=== PATIENT | female | born 1955 | race Caucasian/White ===

== ENCOUNTER 2020-06-27 09:00 | Emergency (ER) | payer MEDICARE ==
[~2020-06-27] VITALS: Ht 157.5 cm; Wt 95.2 kg
--- OUTSIDE RECORDS SUMMARY | ~2020-06-27 | XMS | Encounter Summary ---
Demographics + + + | Address | [address] | | | [place] [address] | + + + | Home Phone | | + + + | Preferred Language | Unknown | + + + | Marital Status | | + + + | Oriental Orthodox Affiliation | Unknown | + + + | Race | Unknown | + + + | Ethnic Group | Unknown | + + + Author + + + | Author | [facility] | | | and [place] | + + + | Organization | [facility] | | | and [place] | + + + | Address | Unknown | + + + | Phone | Unavailable | + + + Support + + +---------+ + | Name | Relationship | Address | Phone | + + +---------+ + | Jaspreet Maloney | ECON | Unknown | | + + +---------+ + Care Team Providers + +------+ + | Care Camera Technician Name | Role | Phone | + +------+ + | Divya Pak | PCP | | + +------+ + Encounter Details +--------+ + + + + | Date | Type | Department | Care Team | Description | +--------+ + + + + | 05/13/ | Abstract | [facility] | Provider, | | | 2019 | | [facility] [address] | [address] | | | | | [address] | [place] | | | | | [place] | [place] [address] | | | | | [id number] | | | | | | [phone] | | | +--------+ + + + + Social History + +-------+ +--------+------+ | Tobacco Use | Types | Packs/Day | Years | Date | | | | | Used | | + +-------+ +--------+------+ | Never Smoker | | | | | + +-------+ +--------+------+ + +---+---+---+ | Smokeless Tobacco: | | | | | Never Used | | | | + +---+---+---+ + + + | Sex Assigned at | Date Recorded | | | | + + + | Not on file | | + + + documented as of this encounter Plan of Treatment Not on filedocumented as of this encounter Visit Diagnoses Not on filedocumented in this encounter"
--- OUTSIDE RECORDS SUMMARY | ~2020-06-27 | XMS | Encounter Summary ---
Demographics + + + | Address | [address] | | | [place] [address] | + + + | Home Phone | | + + + | Preferred Language | Unknown | + + + | Marital Status | | + + + | Voodoo Affiliation | Unknown | + + + | Race | Unknown | + + + | Ethnic Group | Unknown | + + + Author + + + | Author | and [facility] | | | and [place] | + + + | Organization | and [facility] | | | and [place] | + + + | Address | Unknown | + + + | Phone | Unavailable | + + + Support + + +---------+ + | Name | Relationship | Address | Phone | + + +---------+ + | Jaspreet Maloney | ECON | Unknown | | + + +---------+ + Care Team Providers + +------+ + | Care Admitting Office Escort Name | Role | Phone | + +------+ + | Divya Pak | PCP | | + +------+ + Reason for Referral Diagnostic/Screening (Routine) +--------+--------+ + + + + | Status | Reason | Specialty | Diagnoses / | Referred By | Referred To | | | | | Procedures | Contact | Contact | +--------+--------+ + + + + | Closed | | Radiology | Diagnoses | Christina, | [facility] | | | | | Lumbar | Gifty | [address] | | | | | radiculopath | GRICELDA Verdin | Ra Knapp, | | | | | y | [address] | [place] | | | | | Procedures | [place] | [address] | | | | | MRI Lumbar | STREET | Phone: | | | | | Spine wo | [address] | [phone] | | | | | Contrast | [place], | Fax: | | | | | | [place] [address] | [phone] | | | | | | Phone: | | | | | | | [phone] | | | | | | | Fax: | | | | | | | [phone] | | +--------+--------+ + + + + Reason for Visit + + + | Reason | Comments | + + + | New Patient | low back pain | + + + Evaluate & Treat (Routine) +--------+--------+ + + + + | Status | Reason | Specialty | Diagnoses / | Referred By | Referred To | | | | | Procedures | Contact | Contact | +--------+--------+ + + + + | Closed | | Physical | Diagnoses | Pasha, | [facility], | | | | Medicine and | Other | MARLENY Montero | Uziel Diggs MD | | | | Rehabilitatio | intervertebr | [address] | [address] | | | | n | al disc | [address] | [place] | | | | | degeneration | [place], | [place], [place] | | | | | , lumbar | [place] | [address] Phone: | | | | | region | [address] | [phone] | | | | | Spondylosis | Phone: | Fax: | | | | | without | [phone] | [phone] | | | | | myelopathy | Fax: | | | | | | or | [phone] | | | | | | radiculopath | | | | | | | y, | | | | | | | lumbosacral | | | | | | | region | | | +--------+--------+ + + + + Encounter Details +--------+---------+ + + + | Date | Type | Department | Care Team | Description | +--------+---------+ + + + | 05/20/ | Office | [facility] [place] | Gifty Vasquez | Lumbar radiculopathy | | 2019 | Visit | PHYSIATRY [address] | [address] Verdin [address] | (Primary Dx); | | | | [address] | [address] | Fibromyalgia; | | | | [place], [place] | [address] [place], [place] | Sacroiliitis, not | | | | [address] | [address] | elsewhere classified | | | | [phone] | | ([facility]) | +--------+---------+ + + + Social History + +-------+ +--------+------+ | Tobacco Use | Types | Packs/Day | Years | Date | | | | | Used | | + +-------+ +--------+------+ | Never Smoker | | | | | + +-------+ +--------+------+ + +---+---+---+ | Smokeless Tobacco: | | | | | Never Used | | | | + +---+---+---+ + + +---------+ + | Alcohol Use | Drinks/Week | oz/Week | Comments | + + +---------+ + | Not Currently | | | | + + +---------+ + + + + | Sex Assigned at | Date Recorded | | | | + + + | Not on file | | + + + documented as of this encounter Last Filed Vital Signs + + + + + | Vital Sign | Reading | Time Taken | Comments | + + + + + | Blood Pressure | 114/66 | 05/20/2019 11:00 AM | | | | | PDT | | + + + + + | Pulse | 74 | 05/20/2019 11:00 AM | | | | | PDT | | + + + + + | Temperature | - | - | | + + + + + | Respiratory Rate | 16 | 05/20/2019 11:00 AM | | | | | PDT | | + + + + + | Oxygen Saturation | - | - | | + + + + + | Inhaled Oxygen | - | - | | | Concentration | | | | + + + + + | Weight | 98 kg (216 lb) | 05/20/2019 11:00 AM | | | | | PDT | | + + + + + | Height | 154.9 cm (5' 1") | 05/20/2019 11:00 AM | | | | | PDT | | + + + + + | Body Mass Index | 40.81 | 05/20/2019 11:00 AM | | | | | PDT | | + + + + + documented in this encounter Patient Instructions Patient Instructions Gifty Vasquez PA-C - 05/20/2019 11:00 AM PDTFormatting of thi s note might be different from the original. 1. Today we talked about her low back and leg pain. I recommend a lumbar MRI and flexion- extension x-rays. [facility] will contact you to schedule this. Let us plan to have an office visit same day to discuss the images and treatment options. Understanding Lumbar Radiculopathy Lumbar radiculopathy is irritation or inflammation of a nerve root in the low back. It caus es symptoms that spread out from the back down one or both legs. To understand this conditio n, it helps to understand the parts of the spine: Vertebrae. These are bones that stack to form the spine. The lumbar spine contains the 5 bottom vertebrae. Disks. These are soft pads of tissue between the vertebrae. They act as shock absorbers for the spine. Spinal canal. This is a tunnel formed within the stacked vertebrae. In the lumbar spine, nerves run through this canal. Nerves. These branch off and leave the spinal canal, traveling out to parts of the body. As they leave the spinal canal, nerves pass through openings between the vertebrae. The ner ve root is the part of the nerve that is closest to the spinal canal. Sciatic nerve. This is a large nerve formed from several nerve roots in the low back. Th is nerve extends down the back of the leg to the foot. With lumbar radiculopathy, nerve roots in the low back become irritated. This leads to pain and symptoms. The sciatic nerve is commonly involved, so the condition is often called scia dutch. What causes lumbar radiculopathy? Aging, injury, poor posture, extra body weight, and other issues can lead to problems in th e low back. These problems may then irritate nerve roots. They include: Damage to a disk in the lumbar spine. The damaged disk may then press on nearby nerve ro ots. Degeneration from wear and tear, and aging. This can lead to narrowing (stenosis) of the openings between the vertebrae. The narrowed openings press on nerve roots as they leave th e spinal canal. Unstable spine. This is when a vertebra slips forward. It can then press on a nerve root . Other, less common things can put pressure on nerves in the low back. These include diabete s, infection, or a tumor. Symptoms of lumbar radiculopathy These include: Pain in the low back Pain, numbness, tingling, or weakness that travels into the buttocks, hip, groin, or leg Muscle spasms Treatment for lumbar radiculopathy In most cases, your healthcare provider will first try treatments that help relieve symptom s. These may include: Prescription and uzve-fjh-[id number] pain medicines. These help relieve pain, swelling, and irritation. Limits on positions and activities that increase pain. But lying in bed or avoiding all movement is only recommended for a short period of time. Physical therapy, including exercises and stretches. This helps decrease pain and increa se movement and function. Steroid shots into the lower back. This may help relieve symptoms for a time. Weight-loss program. If you are overweight, losing extra pounds may help relieve symptom s. In some cases, you may need surgery to fix the underlying problem. This depends on the caus e, the symptoms, and how long the pain has lasted. Possible complications Over time, an irritated and inflamed nerve may become damaged. This may lead to long-lastin g (permanent) numbness or weakness in your legs and feet. If symptoms change suddenly or get worse, be sure to let your healthcare provider know. When to call your healthcare provider Call your healthcare provider right away if you have any of these: New pain or pain that gets worse New or increasing weakness, tingling, or numbness in your leg or foot Problems controlling your bladder or bowel Date Last Reviewed: 01/24/201619993682-[address] [employer] [place] [id number]. All righ ts reserved. This information is not intended as a substitute for professional medical care. Always follow your healthcare professional's instructions. Fibromyalgia Fibromyalgia is a chronic condition.It causes pain and tenderness in connective tissues. This causes muscle pain. Often, there are also many tender areas throughout the body.Symp toms may also include stiffness and feelings of numbness and tingling. Symptoms may be worse upon waking up. They may increase with poor sleep, heavy activity, cold or damp weather, an xiety, or stress. People with fibromyalgia often feel tired. They may have trouble sleeping. Other symptoms i nclude morning stiffness, headaches, and painful menstrual periods. Some people have problem s with thinking clearly and changes in memory. The cause of fibromyalgia is not known.Symptoms are similar to that of other diseases.T hese include rheumatoid arthritis, low thyroid, chronic fatigue syndrome, and Lyme disease. In some cases, these diseases may occur together. Fibromyalgia is often treated with medicines. You and your healthcare provider can discuss the medicine that may work best for you.You may have to try more than one medicine or comb ination of medicines before you find what works for you. Home care If yourhealthcare providerhas prescribed or recommended medicines, take them as dire cted. Rest as needed. Try to get enough sleep. If you have trouble sleeping, discuss this with your healthcare provider. Be active. Regular exercise can help manage symptoms. Some options include walking, swim pierre, and biking. Strengthening exercises may also be helpful. Talk to your healthcare provi amber about the best ways to be active. Follow a healthy diet. Limit caffeine and alcohol. If you smoke, ask yourhealthcare pr ovider for help to stop. Notice how your body reacts to stress. Learn to listen to your body signals. This will h elp you take action before the stress becomes severe. Learn relaxation techniques. Also consider joining a stress reduction program or class. Talk to your healthcare provider about trying complementary treatments. These include ac upuncture, hypnosis, and biofeedback. Yoga and william chi may be helpful. Ask your healthcare provider about cognitive behavioral therapy (CBT). This type of coun seling canhelp people with fibromyalgia cope better with their illness. Follow-up care Follow up with your healthcare provider or as advised by our staff. In many cases, fibromya lgia is best treated with a team approach. This may involve your primary care provider, a public transit specialist, a physical therapist, clair mental health professional. For more information:National [place] of Arthritis and Musculoskeletal and Skin Disease s (NIAMS)www.niams.nih.gov 544-715-4868 When to seek medical advice Contact your healthcare provider right away if any of these occur: Symptoms getting worse or new symptoms developing You feel hopeless, helpless, or lose interest in day-to-day life Date Last Reviewed: 01/14/201719998730-0736 [employer]. [address] [place] [address]. All righ ts reserved. This information is not intended as a substitute for professional medical care. Always follow your healthcare professional's instructions. documented in this encounter Progress Notes Gifty Vasquez PA-C - 05/20/2019 11:00 AM PDTFormatting of this note might be diffe rent from the original. Gail Vasquez PA-C [address] [place] [address], [address] [place] [address] PHONE: FAX: NEUROSURGERY HISTORY AND PHYSICAL EXAMINATION CHIEF COMPLAINT: Chief Complaint Patient presents with New Patient low back pain HISTORY OF PRESENT ILLNESS: The patient is a 64 y.o. female with the complaint of low back pain symptoms that began several years ago but it has progressively worsening in the last s everal weeks. The patient describes symptom onset following no particular incident however she appreciates that she also has fibromyalgia which causes her total body pain. The sympto ms have been worsening. She rates the pain as mild to severe and can be unpredictable. The symptoms are intermitte nt. She describes the pain as aching, crushing, sharp, shooting, stabbing and tight band. The patient describes leg symptoms that occur on left side. The leg symptoms account for g reater than or equal to 25% of her symptoms. The leg symptoms are intermittent and the symp toms travels from the buttocks to the left anterior thigh and L3 and L5 dermatome. The gage ent also describes numbness and pain in the left leg with all 5 phalanx left side numb. The patient does not report any change in bowel or bladder function recently. Her symptoms improve with rest and changing position. Her symptoms worsen with changing position, standing, sitting, walking, running, kneeling a nd twisting. She has tried Hydromorphone, Medrol Dosepack and Chiropactic. Physical therapy has helped but she continues to have significant pain. For this recent flare she has just completed a higher dose rapid prednisone taper after failing a Medrol Dosepak. Patient is also diabetic . . PAST MEDICAL HISTORY: Past Medical History: Diagnosis Date Depression Diabetes mellitus type 2, controlled, without complications (HCC) Fibromyalgia GERD (gastroesophageal reflux disease) Hypertension Hypothyroidism Left lumbosacral radiculopathy Myalgia Myositis Obesity Osteoarthritis, generalized Other intervertebral disc degeneration, lumbar region Systemic hypertension PAST SURGICAL HISTORY: Past Surgical History: Procedure Laterality Date HYSTERECTOMY CURRENT MEDICATIONS: Current Outpatient Medications Medication Sig Dispense Refill acetaminophen (TYLENOL) 500 mg tablet Take 500 mg by mouth every 6 hours as needed for Pain. atenolol (TENORMIN) 100 MG tablet Take 100 mg by mouth Daily. citalopram (CELEXA) 20 mg tablet Take 1 tablet by mouth Daily. cyclobenzaprine (FLEXERIL) 10 mg tablet Take 10 mg by mouth 4 times daily. HYDROmorphone (DILAUDID) 4 MG tablet Take 4 mg by mouth as needed for Pain. insulin glargine (LANTUS) 100 units/mL injection (vial) Inject 70 Units under the skin nightly. levothyroxine (TIROSINT) 75 mcg capsule Take 75 mcg by mouth every morning (before christelle kfast). liraglutide (VICTOZA) 18 mg/3 mL injection Inject under the skin Daily. lovastatin (MEVACOR) 40 MG tablet Take 40 mg by mouth nightly. metFORMIN (GLUCOPHAGE) 1000 MG tablet Take 1,000 mg by mouth 2 times daily (with breakf ast & dinner). naproxen (NAPROSYN) 250 mg tablet omeprazole (PRILOSEC) 20 mg capsule Take 20 mg by mouth every morning (before breakfast ). No current facility-administered medications for this visit. ALLERGIES: Allergies Allergen Reactions Aspirin Swelling and GI Upset Inflammation of GI Tract Fentanyl Hives and Itching Imitrex [Sumatriptan] Nausea And Vomiting Propofol Other (See Comments) Migraine Vicodin [Hydrocodone] Itching Sulfa Antibiotics Rash SOCIAL HISTORY: The patient reports that she has never smoked. She has never used smokeless tobacco. She r eports that she drank alcohol. She reports that she does not use drugs. FAMILY HISTORY: Family History Problem Relation Age of Onset Diabetes Mother Stroke Mother Osteoporosis Mother Cancer Father Bladder Cancer Osteoporosis Maternal Grandmother Heart disease Maternal Grandmother Arthritis Maternal Grandmother Stroke Maternal Grandmother Cancer Maternal Grandfather Diabetes Maternal Grandfather Cancer Paternal Grandmother Cancer Paternal Grandfather Other (see comment) Brother Post Polio Syndrome Arthritis Brother Alcohol abuse Brother Fibromyalgia Brother Arthritis Sister Fibromyalgia Sister Other (see comment) Sister Osteopenia REVIEW OF SYSTEMS: GENERALLY: No fever, no night sweats, no anemia, + fatigue, + recent profound weight almaguer ges. EYES: + eye problems, no impaired sight, no use of corrective lenses, no eye injury, + elizabeth ble vision, no transient blindness. EARS, NOSE, AND THROAT: + changes in taste or smell, no hearing difficulty, + ringing in t he ears, no ear drainage, no ear injury, no dizziness, no voice changes, no difficulty swall owing, no significant snoring, + sleep apnea/CPAP, no sinus problems, + major dental work. NEUROLOGICALLY: Please see the review of systems discussed above in the history of present illness. In addition, She has pain of arms, numbness/pain of legs, awake with numbness/kalli n, weakness, muscle aching, pain in back, headaches, migraines, confusion. PSYCHIATRIC: + depression, no difficulty sleeping, no anxiety, no bipolar disorder. CARDIOVASCULAR: No heart attacks, + heart murmur, + heart fluttering, no chest pain, no an kle swelling. LUNG DISEASE: No shortness of breath, no cough, no tuberculosis, no bloody cough, no asthm a, no emphysema/COPD. GASTROINTESTINAL: No bowel disease, + nausea or vomiting, + rectal bleeding, no constipati on, no fecal stool incontinence, no liver/gallbladder disease, no abdominal pain, no ulcers. KIDNEY DISEASE: No urinary frequency, no painful or difficult urination, no urinary incont inence, no bladder problems, no impotence. ENDOCRINE: + diabetes, + thyroid disease, no osteopenia or osteoporosis, no breast drainag e. SKIN: No breast lumps, no skin disease or skin changes, no rashes/itches. HEMATOLOGIC/LYMPHATIC: No enlarged lymph nodes, no easy or unusual bleeding, no personal h istory of cancer. RHEUMATOLOGIC: No joint pain/arthritis, no rheumatoid arthritis. PHYSICAL EXAMINATION: Blood pressure 114/66, pulse 74, resp. rate 16, height 1.549 m (5' 1"), weight 98 kg (216 l b). Body mass index is 40.81 kg/m. GENERAL: Chuyita Hale is in no acute distress with unlabored respirations. She does appear uncomfortable throughout the exam today. HEENT: Head: Normocephalic/atraumatic with no areas of recent trauma. Eyes: Normal sclerae without icterus. Ears: No drainage or tenderness. Nasopharynx: Clear without drainage. Oropharynx: Clear without erythema. NECK (ANTERIOR): Supple and without palpable masses. ABDOMEN: Soft, non-tender, non-distended, and without palpable masses. The patient is obes e. NEUROLOGICAL: The patient is awake, alert, and oriented to time, place, person. She follows simple and complex commands. Her speech is fluent. She comprehends speech well. She has no apparent deficits with short or half-way memory. Cranial nerves 2-12 appear grossly intact. Sensory exam does show diminished sensation to light touch in the 5 phalanx. EXTREMITIES: No cyanosis, clubbing. Patient does have 1+ pitting edema mid tibia distally and bilateral. She is developing signs of venous stasis left lower leg without sores. PHYSICAL EXAM: MENTAL STATUS: She is awake, alert, and oriented. She follows simple and complex commands. Her speech is fluent, she comprehends speech well, and she repeats well. She has no apparent deficits with short or half-way memory. CRANIAL NERVES: II: Acuity is intact. Dyer are full to confrontation. III, IV, : The pupils are reactive. Extraocular movements are intact. No ptosis is note d. V: Facial sensation is intact and symmetric. VII: Facial movements are symmetric. VIII: Hearing is intact bilaterally. IX, X: The uvula and palate move appropriately. XI: Shrug is equal bilaterally. XII: Tongue protrusion is midline. MOTOR EXAM: (5 IS NORMAL) * Indicates pain limited MUSCLE/ MOVEMENT: RIGHT LEFT Hip Flexion 5 5 Hip Extension 5 5 Knee Flexion 5 5 Knee Extension 5 5 Dorsiflexion 5 5 Extensor Hallicus Longus 5 5 Plantarflexion 5 5 REFLEXES: (2 OR 2+ IS NORMAL) REFLEX: RIGHT LEFT PATELLAR 2 2 ACHILLES 2 2 GAIT: Gait is steady with an antalgic gait favoring the left side. She is able to demonstrate ti ptoe and heel walk PERIPHERAL NERVE/MISC: Straight leg raise is negative bilaterally. Sit-slump test positive left lower extremity. Reuben's test of the hips is negative bilaterally. 11+ trigger points consistent with myofascial pain Patient is focally tender over bilateral SI joints however my confidence level is only mode rate due to overlay of fibromyalgia in this area. TEST AND RADIOGRAPHIC REVIEW: Lumbar x-rays from 05/03/2019 shows no major instability. Patient has no advanced lumbar im aging. ASSESSMENT: NEUROSURGICAL DIAGNOSES: Encounter Diagnoses Name Primary? Lumbar radiculopathy Yes Fibromyalgia Sacroiliitis, not elsewhere classified (HCC) GENERAL DIAGNOSES: Past Medical History: Diagnosis Date Depression Diabetes mellitus type 2, controlled, without complications (HCC) Fibromyalgia GERD (gastroesophageal reflux disease) Hypertension Hypothyroidism Left lumbosacral radiculopathy Myalgia Myositis Obesity Osteoarthritis, generalized Other intervertebral disc degeneration, lumbar region Systemic hypertension PLAN: Chuyita Hale presented today, and it was a pleasure seeing this patient and assessin g her problems. 1) Today we discussed the patient's differential diagnosis with the likely primary issue be ing LUMBAR RADICULOPATHY and L3 and L5 dermatome left lower extremity along with an overlay of fibromyalgia. Patient also has significant tenderness over bilateral SI joints. Patient 's description of symptoms, physical exam, and imaging suggest this diagnosis at this time. 2) I counseled patient on treatment options which included conservative self management usi ng OTC NSAIDs/Ice and heat packs, physical therapy, prescription medications, epidural stero id injection, neuromodulation therapies, as well as possible surgical intervention. 3) Imaging: As descibed above in radiology review. Lumbar MRI was ordered to assess lumbar spine for herniation, disc pathology, and/or nerve root impingement that may be contributing to patient's symptoms. Flexion-extension lumbar xray was ordered to assess lumbar spine for compression fracture o r instability during flexion/extension that may be contributing to patient's symptoms. 4) The patient has had significant conservative care including medications (NSAIDS and narc otics), PT (multiple sessions over the years) and child care team lead. Unfortunately Chuyita thrasher continues to have significant discomfort. It appears to me that the pain is prim arily coming from SI region and left lower extremity radiculopathy. I did feel that Chuyita Hale would be a good candidate for interventional procedu res pending MRI results. The patient is currently receiving prednisone and Dilaudid from outside sources. I do not believe that with her diabetes we should add more prednisone and help to find a solution wit h injection therapy after MRI results. 5) Patient will follow up with me same day as MRI to review images and treatment options. I spent 30 minutes in visit with Chuyita Hale today with the majority of time spent counselling the patient on her diagnosis, options for her care, and coordinating her care. 05/20/19 ELECTRONICALLY SIGNED BY: Gail Vasquez PA-C, 05/20/2019 11:35 documented in this encounter Plan of Treatment Not on filedocumented as of this encounter Results MRI Lumbar Spine wo Contrast (05/31/2019 12:13 PM PDT) + + | Specimen | + + | | + + + + + | Narrative | Performed At | + + + | TECHNIQUE: MRI of the lumbar spine with sequences to include | [facility] | | sagittal T1, sagittal STIR, axial T1, axial T2, sagittal T2, and | | | coronal T2. CLINICAL INFORMATION: lumbar radiculopathy | | | COMPARISON: Radiographs dated 05/31/2019 and 05/03/2019. FINDINGS: | | | The lowest functional disc level is presumed to represent L5/S1. | | | The conus medullaris terminates at L1. The cauda equina appears | | | normal. Normal height of the vertebral bodies. Normal bone | | | marrow signal characteristics. No bony lesion. No acute | | | abnormality. Slight retrolisthesis of L1, L2, and L3. T12/L1: | | | Unremarkable. L1/2: Minimal disc bulge and early bilateral facet | | | arthrosis. No significant spinal canal or neural foraminal | | | stenosis. L2/3: Minimal broad-based posterior disc protrusion. | | | No significant spinal canal or neural foraminal stenosis. L3/4: | | | Small left central annular fissure with inferior directed left | | | subarticular posterior disc extrusion measuring approximately 9 mm. | | | There is moderate to severe narrowing of the left subarticular | | | recess with encroachment on the traversing left L4 nerve root. Mild | | | bilateral facet arthrosis and mild ligament of flavum hypertrophy. | | | Mild left neural foraminal stenosis. L4/5: Minimal disc bulge, | | | mild bilateral facet arthrosis, and mild ligamentum flavum | | | hypertrophy. No significant spinal canal stenosis. Minimal | | | bilateral neural foraminal stenosis. L5/S1: Moderate right/mild | | | left facet arthrosis without significant spinal canal or neural | | | foraminal stenosis. No focal paraspinal soft tissue abnormality. | | | IMPRESSION - Multilevel lumbar spondylosis as detailed above | | | without significant spinal canal stenosis. Slight retrolisthesis of | | | L1, L2, and L3. Inferiorly directed left central L3-L4 posterior | | | disc extrusion causing left subarticular recess narrowing and | | | encroachment on the traversing left L4 nerve root. Dictated and | | | Signed by: Reuben Kennedy MD Electronically signed: 05/31/2019 | | | 3:01 PM | | + + + + + | Procedure Note | + + | Raman Alba Results In - 05/31/2019 3:04 PM PDT | | TECHNIQUE: MRI of the lumbar spine with sequences to include sagittal T1, | | sagittal STIR, axial T1, axial T2, sagittal T2, and coronal T2. | | | | CLINICAL INFORMATION: lumbar radiculopathy | | | | COMPARISON: Radiographs dated 05/31/2019 and 05/03/2019. | | | | FINDINGS: | | | | The lowest functional disc level is presumed to represent L5/S1. | | | | The conus medullaris terminates at L1. The cauda equina appears normal. | | | | Normal height of the vertebral bodies. Normal bone marrow signal | | characteristics. No bony lesion. No acute abnormality. Slight retrolisthesis | | of L1, L2, and L3. | | | | T12/L1: Unremarkable. | | | | L1/2: Minimal disc bulge and early bilateral facet arthrosis. No significant | | spinal canal or neural foraminal stenosis. | | | | L2/3: Minimal broad-based posterior disc protrusion. No significant spinal | | canal or neural foraminal stenosis. | | | | L3/4: Small left central annular fissure with inferior directed left | | subarticular posterior disc extrusion measuring approximately 9 mm. There is | | moderate to severe narrowing of the left subarticular recess with encroachment | | on the traversing left L4 nerve root. Mild bilateral facet arthrosis and mild | | ligament of flavum hypertrophy. Mild left neural foraminal stenosis. | | | | L4/5: Minimal disc bulge, mild bilateral facet arthrosis, and mild ligamentum | | flavum hypertrophy. No significant spinal canal stenosis. Minimal bilateral | | neural foraminal stenosis. | | | | L5/S1: Moderate right/mild left facet arthrosis without significant spinal canal | | or neural foraminal stenosis. | | | | No focal paraspinal soft tissue abnormality. | | | | | | IMPRESSION - | | Multilevel lumbar spondylosis as detailed above without significant spinal canal | | stenosis. Slight retrolisthesis of L1, L2, and L3. | | | | Inferiorly directed left central L3-L4 posterior disc extrusion causing left | | subarticular recess narrowing and encroachment on the traversing left L4 nerve | | root. | | | | Dictated and Signed by: Reuben Kennedy MD | | Electronically signed: 05/31/2019 3:01 PM | + + + +---------+ + + | Performing | Address | City/State/Zipcode | Phone Number | | Organization | | | | + +---------+ + + | [facility] | | | | + +---------+ + + XR Lumbar Spine 2 or 3 Vw (05/31/2019 11:13 AM PDT) + + | Specimen | + + | | + + + + + | Narrative | Performed At | + + + | XR LUMBAR SPINE 2 OR 3 VW 05/31/2019 11:12 AM HISTORY: lumbar | [facility] | | radiculopathy. COMPARISON: 05/03/2019. FINDINGS: There is mild | | | spondylosis. Minimal retrolisthesis is seen of L3 over L4 with no | | | instability. Bone marrow mineralization is normal. Vertebral body | | | height are preserved with no evidence for compression fractures. Disc | | | height are maintained. Facet joints are intact. Visualized ribs and | | | pelvic osseous structures show no acute findings. Soft tissue | | | structures are unremarkable. IMPRESSION - Mild spondylosis, no | | | instability. Dictated and Signed by: Fili Samuel MD | | | Electronically signed: 05/31/2019 12:35 PM | | + + + + + | Procedure Note | + + | Parth, Rad Results In - 05/31/2019 12:38 PM PDT XR LUMBAR SPINE 2 OR 3 VW 05/31/2019 | | 11:12 AMHISTORY: lumbar radiculopathy.COMPARISON: 05/03/2019.FINDINGS:There is mild | | spondylosis. Minimal retrolisthesis is seen of L3 over L4 with noinstability. Bone | | marrow mineralization is normal. Vertebral body height arepreserved with no evidence for | | compression fractures. Disc height aremaintained. Facet joints are intact. Visualized | | ribs and pelvic osseousstructures show no acute findings. Soft tissue structures are | | unremarkable.IMPRESSION -Mild spondylosis, no instability.Dictated and Signed by: Fili | | MD Jimmie Electronically signed: 05/31/2019 12:35 PM | |instability. Bone marrow mineralization is normal. Vertebral body height are | |preserved with no evidence for compression fractures. Disc height are | |maintained. Facet joints are intact. Visualized ribs and pelvic osseous | |structures show no acute findings. Soft tissue structures are unremarkable. | | | |IMPRESSION - | |Mild spondylosis, no instability. | | | |Dictated and Signed by: Fili Samuel MD | | Electronically signed: 05/31/2019 12:35 PM | + + + +---------+ + + | Performing | Address | City/State/Zipcode | Phone Number | | Organization | | | | + +---------+ + + | [facility] | | | | + +---------+ + + documented in this encounter Visit Diagnoses + + | Diagnosis | + + | Lumbar radiculopathy - Primary Thoracic or lumbosacral neuritis or radiculitis, | | unspecified | + + | Fibromyalgia Mylagia and myositis, unspecified | + + | Sacroiliitis, not elsewhere classified (HCC) Sacroiliitis, not elsewhere classified | + + documented in this encounter
--- OUTSIDE RECORDS SUMMARY | ~2020-06-27 | XMS | Encounter Summary ---
Demographics + + + | Address | [address] | | | [place] [address] | + + + | Home Phone | | + + + | Preferred Language | Unknown | + + + | Marital Status | | + + + | Taoism Affiliation | Unknown | + + + | Race | Unknown | + + + | Ethnic Group | Unknown | + + + Author + + + | Author | [facility] | | | and [place] | + + + | Organization | [facility] | | | and [...] Team Providers + +------+ + | Care Retail Client Solutions Analyst Name | Role | Phone | + +------+ + | Divya Pak | PCP | | + +------+ + Encounter Details +--------+ + + + + | Date | Type | Department | Care Team | Description | +--------+ + + + + | 05/31/ | [facility] | [facility] | Gifty Vasquez | Lumbar | | 2019 | Encounter | MED CTR XRAY [address] | [address] | radiculopathy; | | | | [place] | [facility] [address] | Sacroiliitis, not | | | | [place] [address] | [address] [place] [place] | elsewhere classified | | | | [phone] | [id number] | (HCC) | | | | | | | +--------+ + + + [...] + + documented as of this encounter Medications at Time of Discharge + + + +---------+--------+ + | Medication | Sig | Dispensed | Refills | Start | End Date | | | | | | Date | | + + + +---------+--------+ + | acetaminophen | Take 500 mg by mouth | | 0 | | | | (TYLENOL) 500 mg | every 6 hours as | | | | | | tablet | needed for Pain. | | | | | + + + +---------+--------+ + | atenolol | Take 100 mg by mouth | | 0 | | | | (TENORMIN) 100 MG | Daily. | | | | | | tablet | | | | | | + + + +---------+--------+ + | citalopram | Take 1 tablet by | | 0 | | | | (CELEXA) 20 mg | mouth Daily. | | | | | | tablet | | | | | | + + + +---------+--------+ + | cyclobenzaprine | Take 10 mg by mouth | | 0 | | | | (FLEXERIL) 10 mg | 4 times daily. | | | | | | tablet | | | | | | + + + +---------+--------+ + | HYDROmorphone | Take 4 mg by mouth | | 0 | | | | (DILAUDID) 4 MG | as needed for Pain. | | | | | | tablet | | | | | | + + + +---------+--------+ + | insulin glargine | Inject 70 Units | | 0 | | | | (LANTUS) 100 | under the skin | | | | | | units/mL injection | nightly. | | | | | | (vial) | | | | | | + + + +---------+--------+ + | levothyroxine | Take 75 mcg by mouth | | 0 | | | | (TIROSINT) 75 mcg | every morning | | | | | | capsule | (before breakfast). | | | | | + + + +---------+--------+ + | liraglutide | Inject under the | | 0 | | | | (VICTOZA) 18 mg/3 mL | skin Daily. | | | | | | injection | | | | | | + + + +---------+--------+ + | lovastatin | Take 40 mg by mouth | | 0 | | | | (MEVACOR) 40 MG | nightly. | | | | | | tablet | | | | | | + + + +---------+--------+ + | metFORMIN | Take 1,000 mg by | | 0 | | | | (GLUCOPHAGE) 1000 MG | mouth 2 times daily | | | | | | tablet | (with breakfast & | | | | | | | dinner). | | | | | + + + +---------+--------+ + | naproxen | | | 0 | | | | (NAPROSYN) 250 mg | | | | | | | tablet | | | | | | + + + +---------+--------+ + | omeprazole | Take 20 mg by mouth | | 0 | | | | (PRILOSEC) 20 mg | every morning | | | | | | capsule | (before breakfast). | | | | | + + + +---------+--------+ + documented as of this encounter Plan of Treatment Not on filedocumented as of this encounter Procedures + +--------+ + + + | Procedure Name | Priori | Date/Time | Associated Diagnosis | Comments | | | ty | | | | + +--------+ + + + | XR LUMBAR SPINE 2 OR | Routin | 05/31/2019 | Lumbar | Results for this | | 3 VW | e | 11:13 AM | radiculopathy | procedure are in the | | | | PDT | Sacroiliitis, not | results section. | | | | | elsewhere classified | | | | | | (HCC) | | + +--------+ + + + documented in this encounter Results XR Lumbar Spine 2 or 3 Vw [...] Diagnosis | + + | Lumbar radiculopathy Thoracic or lumbosacral neuritis or radiculitis, unspecified | + + | Sacroiliitis, not elsewhere classified (HCC) Sacroiliitis, not elsewhere classified | + + documented in this encounter"
--- OUTSIDE RECORDS SUMMARY | ~2020-06-27 | XMS | Encounter Summary ---
Demographics + + + | Address | [address] | | | [place] [address] | + + + | Home Phone | | + + + | Preferred Language | Unknown | + + + | Marital Status | | + + + | Zoroastrianism Affiliation | Unknown | + + + | Race | Unknown | + + + | Ethnic Group | Unknown | + + + Author + + + | Author | [facility] | | | and [place] | + + + | Organization | [facility] | | | and [...] Team Providers + +------+ + | Care Bufferer Name | Role | Phone | + +------+ + | Divya Pak | PCP | | + +------+ + Encounter Details +--------+ + + + + | Date | Type | Department | Care Team | Description | +--------+ + + + + | 05/09/ | Imaging | [facility] | Provider, | | | 2019 | Exam | MED CTR EXTERNAL | [address] | | | | | IMAGING [address] | [address] | | | | | [address] | [place] [address] | | | | | [place] [address] | | | | | | [phone] | | | +--------+ + + + + Social History + +-------+ +--------+------+ | Tobacco Use | Types | Packs/Day | Years | Date | | | | | Used | | + +-------+ +--------+------+ | Never Assessed | | | | | + +-------+ +--------+------+ + + + | Sex Assigned at [...] + + + | XR LUMBAR SPINE 4 + | Routin | 05/03/2019 | | Results for this | | VW | e | 12:00 AM | | procedure are in the | | | | PDT | | results section. | + +--------+ + + + documented in this encounter Results XR Lumbar Spine 4 + Vw (05/03/2019 12:00 AM PDT) + + | Specimen | + + | | + + + + + | Narrative | Performed At | + + + | External films for comparison only | [facility] | | | | | No results will be in the chart. | | + + + + +---------+ + + | Performing | Address | City/State/Zipcode | Phone Number | | Organization | | | | + +---------+ + + | [facility] | | | | + +---------+ + + documented in this encounter Visit Diagnoses Not on filedocumented in this encounter"
--- OUTSIDE RECORDS SUMMARY | ~2020-06-27 | XMS | Encounter Summary ---
Demographics + + + | Address | [address] | | | [place] [address] | + + + | Home Phone | | + + + | Preferred Language | Unknown | + + + | Marital Status | | + + + | Worship Affiliation | Unknown | + + + | Race | Unknown | + + + | Ethnic Group | Unknown | + + + Author + + + | Author | [facility] | | | and [place] | + + + | Organization | [facility] | | | and [...] Team Providers + +------+ + | Care Inclusion Manager Name | Role | Phone | + +------+ + | Divya Pak | PCP | | + +------+ + Encounter Details +--------+ + + + + | Date | Type | Department | Care Team | Description | +--------+ + + + + | 06/01/ | Orders Only | [facility] [place] | Gifty Vasquez | Lumbar radiculopathy | | 2019 | | PHYSIATRY [address] | [address] | (Primary Dx) | | | | [address] | [address] | | | | | [place], [place] | [address] | | | | | [address] | [address] | | | | | [phone] | | | +--------+ + + + [...] as of this encounter Plan of Treatment + +---------+--------+ + + | Name | Type | Priori | Associated Diagnoses | Order Schedule | | | | ty | | | + +---------+--------+ + + | FL SERGEY Lumbar | Imaging | Routin | Lumbar | Expected: | | Transforaminal | | e | radiculopathy | 06/01/2019, Expires: | | | | | | 06/01/2020 | + +---------+--------+ + + documented as of this encounter Visit Diagnoses + + | Diagnosis | + + | Lumbar radiculopathy - Primary Thoracic or lumbosacral neuritis or radiculitis, | | unspecified | + + documented in this encounter"
--- OUTSIDE RECORDS SUMMARY | ~2020-06-27 | XMS | Encounter Summary ---
Demographics + + + | Address | [address] | | | [place] [address] | + + + | Home Phone | | + + + | Preferred Language | Unknown | + + + | Marital Status | | + + + | Restorationism Affiliation | Unknown | + + + | Race | Unknown | + + + | Ethnic Group | Unknown | + + + Author + + + | Author | [facility] | | | and [place] | + + + | Organization | [facility] | | | and [place] | [...] Team Providers + +------+ + | Care Relief Worker Name | Role | Phone | + +------+ + | Divya Pak | PCP | | + +------+ + Reason for Visit + +--------+ + | Reason | Onset | Comments | | | Date | | + +--------+ + | Results, Imaging | 05/31/ | | | | 2019 | | + +--------+ + Encounter Details +--------+ + + + + | Date | Type | Department | Care Team | Description | +--------+ + + + + | 05/31/ | Telephone | [facility] [place] | Gifty Vasquez | Results, Imaging | | 2019 | | [address]SIATRY [address] | [address] | | | | | [address] | [address] | | | | | [place], [place] | [address] [place], [place] | | | | | [address] | [address] | | | | | [phone] | | | +--------+ + + + [...] + + documented as of this encounter Miscellaneous Notes Telephone Encounter - Gifty Vasquez PA-C - 05/31/2019 3:19 PM PDTReply is in imag ing results review. P M PDTTelephone Encounter - Aurelia Heart Continuous Improvement Specialist - 05/31/2019 1:45 PM PDTNicole, Lumbar x-rays and MRI are on I-site. Please review and advise. elephone Encounter - Plunkett, Therese ne J - 05/31/2019 12:29 PM PDTPatient completed MRI and xrays today, would like a call back with results. Please advise P M PDTdocumented in this encounter Plan of Treatment Not on filedocumented as of this encounter Visit Diagnoses Not on filedocumented in this encounter"
--- OUTSIDE RECORDS SUMMARY | ~2020-06-27 | XMS | Encounter Summary ---
Demographics + + + | Address | [address] | | | [place] [address] | + + + | Home Phone | | + + + | Preferred Language | Unknown | + + + | Marital Status | | + + + | Hindu Affiliation | Unknown | + + + | Race | Unknown | + + + | Ethnic Group | Unknown | + + + Author + + + | Author | [facility] | | | and [place] | + + + | Organization | [facility] | | | and [place] | [...] Team Providers + +------+ + | Care Hotel Baggage Handler Name | Role | Phone | + [...] | Lumbar | Gifty | [address] | | | | | radiculopath | [address] | [place], | | | | | y | [address] | [place] | | | | | Procedures | [place] | [address] | | | | | MRI Lumbar | STREET | Phone: | | | | | Spine wo | [address] | [phone] | | | | | Contrast | [place], | Fax: | | | | | | [place] [address] | [phone] | | | | | | Phone: | | | | | | | [phone] | | | | | | | Fax: | | | | | | | [phone] | | +--------+--------+ + + + + Reason for Visit Diagnostic/Screening (Routine) +--------+--------+ + + + + | Status | Reason | Specialty | Diagnoses / | Referred By | Referred To | | | | | Procedures | Contact | Contact | +--------+--------+ + + + + | Closed | | Radiology | Diagnoses | Patient Access, | [facility] | | | | | Lumbar | Gifty | [address] | | | | | radiculopath | [address] | [place], | | | | | y | [address] | [place] | | | | | Procedures | [place] | [address] | | | | | MRI Lumbar | STREET | Phone: | | | | | Spine wo | [address] | [phone] | | | | | Contrast | [place], | Fax: | | | | | | [place] [address] | [phone] | | | | | | Phone: | | | | | | | [phone] | | | | | | | Fax: | | | | | | | [phone] | | +--------+--------+ + + + + Encounter Details +--------+ + + + + | Date | Type | Department | Care Team | Description | +--------+ + + + + | 05/31/ | Hospital | [facility] | Gifty Vasquez | Lumbar radiculopathy | | 2019 | Encounter | MED CTR MRI [address] | [address] | | | | | [place], | [facility] | | | | | [place] [address] | [address] | | | | | [phone] | [address] | | | | | | | | [...] | + +--------+ + + + | MRI LUMBAR SPINE WO | Routin | 05/31/2019 | Lumbar | Results for this | | CONTRAST | e | 12:13 PM | radiculopathy | procedure are in the | | | | PDT | | results section. | + +--------+ + + + documented in this encounter Results MRI Lumbar Spine wo [...] | Parth, Rad Results In - 05/31/2019 3:04 PM PDT [...] neuritis or radiculitis, unspecified | + + documented in this encounter"
--- OUTSIDE RECORDS SUMMARY | ~2020-06-27 | XMS | Encounter Summary ---
Demographics + + + | Address | [address] | | | [place] [address] | + + + | Home Phone | | + + + | Preferred Language | Unknown | + + + | Marital Status | | + + + | Samaritan Affiliation | Unknown | + + + | Race | Unknown | + + + | Ethnic Group | Unknown | + + + Author + + + | Author | [facility] | | | and [place] | + + + | Organization | [facility] | | | and [place] [...] Team Providers + +------+ + | Care Commonwealth Attorney Name | Role | Phone | + +------+ + | Divya aPk | PCP | | + +------+ + Reason for Visit +---------+--------+ + | Reason | Onset | Comments | | | Date | | +---------+--------+ + | Results | 05/31/ | | | | 2019 | | +---------+--------+ + Encounter Details +--------+ + + + + | Date | Type | Department | Care Team | Description | +--------+ + + + + | 05/31/ | Telephone | [facility] [place] | Gifty Vasquez | Results | | 2019 | | PHYSIATRY [address] | [address] | | | | | [address] | [facility] | | | | | [place] | [address] [place] | | | | | [address] | [address] | | | | | [phone] | | | +--------+ + + + [...] this encounter Miscellaneous Notes Telephone Encounter - Aurelia Heart Ibm Bpm Developer - 06/01/2019 3:26 PM PDTReferral steiner s been placed. Will call patient when authorized to schedule injection. Electronically jessica d by Danica Judge Assistant at 06/01/2019 3:27 PM PDTTelephone Encounter - Gifty Vasquez PA-C - 06/01/2019 2:37 PM PDTOrder placed for left TFESI L3-4 and L4-5Elect ronically signed by Gifty Vasquez PA-C at 06/01/2019 2:38 PM PDTTelephone Encounter - Aurelia Heart Ibm Bpm Developer - 05/31/2019 4:21 PM PDTI spoke to patient and relayed the results. The patient would like the steroid injections to be ordered. Velvet please place orders. Electronically signed by Danica Judge Assistant at 4:23 PM PDTTelephone Encounter - Aurelia Heart Medical Assistant - 05/31/2019 4:2 1 PM PDT----- Message from Gifty Vasquez PA-C sent at 05/31/2019 15:18 PDT ----- Please notify patient that the x-ray shows a stable spine when flexing and extending. The MRI shows a disc bulge at L3-4 to the left that may be affecting the left L4 nerve. This do es correlate with the symptoms she had at the office visit. There are minimal bulges above and below that at L2-3 and L4-5. These levels are not pinching any nerves. I would recommend if she is continuing to have left lower extremity pain I could order an e pidural steroid injection. This could be a TFESI left L3-4 left L4-5. This will get steroid near the disc bulge and near the L4 nerve going down her leg. Please let me know if she wou ld like me to order that.Electronically signed by Danica Judge Assistant at 019 4:21 PM PDTdocumented in this encounter Plan of Treatment Not on filedocumented as of this encounter Visit Diagnoses Not on filedocumented in this encounter"
--- OUTSIDE RECORDS SUMMARY | ~2020-06-27 | XMS | Clinical Summary ---
Demographics + + + | Address | [address] | | | [place] [address] | + + + | Home Phone | | + + + | Preferred Language | Unknown | + + + | Marital Status | | + + + | Hoahaoism Affiliation | Unknown | + + + | Race | Unknown | + + + | Ethnic Group | Unknown | + + + Author + + + | Author | [facility] | | | and [place] | + + + | Organization | [facility] | | | and [...] Team Providers + +------+ + | Care Programs Manager Name | Role | Phone | + +------+ + | Divya Pak | PCP | | + +------+ + Allergies + + + + + + | Active Allergy | Reactions | Severity | Noted | Comments | | | | | Date | | + + + + + + | Aspirin | Swelling, GI Upset | | 05/02/20 | Inflammation of GI | | | | | 19 | Tract | + + + + + + | Fentanyl | Hives, Itching | | 05/02/20 | | | | | | 19 | | + + + + + + | Sumatriptan | Nausea And Vomiting | | 05/02/20 | | | | | | 19 | | + + + + + + | Propofol | Other (See Comments) | | 05/02/20 | Migraine | | | | | 19 | | + + + + + + | Sulfa Antibiotics | Rash | Low | 05/02/20 | | | | | | 19 | | + + + + + + | Hydrocodone | Itching | | 05/02/20 | | | | | | 19 | | + + + + + + Medications + + + +---------+------+------+-------+ | Medication | Sig | Dispensed | Refills | Star | End | Statu | | | | | | t | Date | s | | | | | | Date | | | + + + +---------+------+------+-------+ | insulin glargine | Inject 70 Units | | 0 | | | Activ | | (LANTUS) 100 | under the skin | | | | | e | | units/mL injection | nightly. | | | | | | | (vial) | | | | | | | + + + +---------+------+------+-------+ | liraglutide | Inject under the | | 0 | | | Activ | | (VICTOZA) 18 mg/3 mL | skin Daily. | | | | | e | | injection | | | | | | | + + + +---------+------+------+-------+ | naproxen | | | 0 | | | Activ | | (NAPROSYN) 250 mg | | | | | | e | | tablet | | | | | | | + + + +---------+------+------+-------+ | levothyroxine | Take 75 mcg by mouth | | 0 | | | Activ | | (TIROSINT) 75 mcg | every morning | | | | | e | | capsule | (before breakfast). | | | | | | + + + +---------+------+------+-------+ | cyclobenzaprine | Take 10 mg by mouth | | 0 | | | Activ | | (FLEXERIL) 10 mg | 4 times daily. | | | | | e | | tablet | | | | | | | + + + +---------+------+------+-------+ | atenolol | Take 100 mg by mouth | | 0 | | | Activ | | (TENORMIN) 100 MG | Daily. | | | | | e | | tablet | | | | | | | + + + +---------+------+------+-------+ | lovastatin | Take 40 mg by mouth | | 0 | | | Activ | | (MEVACOR) 40 MG | nightly. | | | | | e | | tablet | | | | | | | + + + +---------+------+------+-------+ | omeprazole | Take 20 mg by mouth | | 0 | | | Activ | | (PRILOSEC) 20 mg | every morning | | | | | e | | capsule | (before breakfast). | | | | | | + + + +---------+------+------+-------+ | metFORMIN | Take 1,000 mg by | | 0 | | | Activ | | (GLUCOPHAGE) 1000 MG | mouth 2 times daily | | | | | e | | tablet | (with breakfast & | | | | | | | | dinner). | | | | | | + + + +---------+------+------+-------+ | citalopram | Take 1 tablet by | | 0 | | | Activ | | (CELEXA) 20 mg | mouth Daily. | | | | | e | | tablet | | | | | | | + + + +---------+------+------+-------+ | acetaminophen | Take 500 mg by mouth | | 0 | | | Activ | | (TYLENOL) 500 mg | every 6 hours as | | | | | e | | tablet | needed for Pain. | | | | | | + + + +---------+------+------+-------+ | HYDROmorphone | Take 4 mg by mouth | | 0 | | | Activ | | (DILAUDID) 4 MG | as needed for Pain. | | | | | e | | tablet | | | | | | | + + + +---------+------+------+-------+ Active Problems No known active problems Family History + + +------+ + | Medical History | Relation | Name | Comments | + + +------+ + | Alcohol abuse | Brother | | | + + +------+ + | Arthritis | Brother | | | + + +------+ + | Fibromyalgia | Brother | | | + + +------+ + | Other (see comment) | Brother | | Post Polio Syndrome | + + +------+ + | Cancer | Father | | Bladder Cancer | + + +------+ + | Cancer | Maternal | | | | | Grandfath | | | | | er | | | + + +------+ + | Diabetes | Maternal | | | | | Grandfath | | | | | er | | | + + +------+ + | Arthritis | Maternal | | | | | Grandmoth | | | | | er | | | + + +------+ + | Heart disease | Maternal | | | | | Grandmoth | | | | | er | | | + + +------+ + | Osteoporosis | Maternal | | | | | Grandmoth | | | | | er | | | + + +------+ + | Stroke | Maternal | | | | | Grandmoth | | | | | er | | | + + +------+ + | Diabetes | Mother | | | + + +------+ + | Osteoporosis | Mother | | | + + +------+ + | Stroke | Mother | | | + + +------+ + | Cancer | Paternal | | | | | Grandfath | | | | | er | | | + + +------+ + | Cancer | Paternal | | | | | Grandmoth | | | | | er | | | + + +------+ + | Arthritis | Sister | | | + + +------+ + | Fibromyalgia | Sister | | | + + +------+ + | Other (see comment) | Sister | | Osteopenia | + + +------+ + + +------+ + + | Relation | Name | Status | Comments | + +------+ + + | Brother | | | | + +------+ + + | Father | | | | | | | (Age | | | | | 84) | | + +------+ + + | Maternal Grandfather | | | | + +------+ + + | Maternal Grandmother | | | | + +------+ + + | Mother | | | | + +------+ + + | Paternal Grandfather | | | | + +------+ + + | Paternal Grandmother | | | | + +------+ + + | Sister | | | | + +------+ + + Social History + +-------+ +--------+------+ [...] on file | | + + + Last Filed Vital Signs + + + [...] | | + + + + + Plan of Treatment + + + + + | Health Maintenance | Due Date | Last | Comments | | | | Done | | + + + + + | Hepatitis C | | | | | Screening | 3 | | | + + + + + | Med Mgmt: BUN | | | | | | 3 | | | + + + + + | Med Mgmt: Cr | | | | | | 3 | | | + + + + + | Med Mgmt: HBA1C | | | | | | 3 | | | + + + + + | Med Mgmt: TSH | | | | | | 3 | | | + + + + + | Med Mgmt: eGFR | | | | | | 3 | | | + + + + + | Medication | | | | | Management | 3 | | | + + + + + | Colorectal Cancer | | | | | Screening | 3 | | | | (Colonoscopy) | | | | + + + + + | Breast Cancer | | | | | Screening | 8 | | | + + + + + | Vaccine: Zoster (2 | | 08/02/20 | | | of 3) | 3 | 13 | | + + + + + | Vaccine: | | | | | Pneumococcal 65+ (1 | 8 | | | | of 1 - PPSV23) | | | | + + + + + | Adult Annual | | | | | Wellness Visit | 9 | | | + + + + + | Vaccine: Influenza | | 07/21/20 | | | (#1) | 0 | 18, | | | | | 08/07/20 | | | | | 17, | | | | | 10/20/20 | | | | | 16, | | | | | Addition | | | | | al | | | | | history | | | | | exists | | + + + + + | Vaccine: | | 08/07/20 | | | Dtap/Tdap/Td (2 - | 7 | 17 | | | Td) | | | | + + + + + Results Not on filefrom Last 3 Months Insurance + +--------+ +--------+ +---------+--------+ | Payer | Benefi | Subscriber | Effect | Phone | Address | Type | | | t Plan | ID | ursula | | | | | | / | | Dates | | | | | | Group | | | | | | + +--------+ +--------+ +---------+--------+ | MEDICARE | MEDICA | [id number] | 04/16/20 | [phone] | | Medica | | | RE | | 12-Pre | 5 | | re | | | PART A | | sent | | | | | | AND B | | | | | | + +--------+ +--------+ +---------+--------+ | AARP | AARP | [id number] | 11/16/19 | [phone] | | Indemn | | | MDCR | | 19-Pre | 0 | | ity | | | SUPPL | | sent | | | | + +--------+ +--------+ +---------+--------+ + +--------+ +--------+ + + | Guarantor Name | Accoun | Relation to | Date | Phone | Billing Address | | | t Type | Patient | of | | | | | | | | | | + +--------+ +--------+ + + | Chuyita Hale | Person | Self | [birth year] | [address] | | | al/Fam | | 3 | [phone] | [place] [address] | | | chucho | | | 9 (Home) | | + +--------+ +--------+ + + Advance Directives + + + + + | Type | Date Recorded | Patient | Explanation | | | | Public Information Specialist | | + + + + + | Power of | | | | | Tmd Teacher | | | | + + + + + | Advance | 05/31/2019 11:03 | | | | Directive | AM | | | + + + + +
--- OUTSIDE RECORDS SUMMARY | ~2020-06-27 | XMS | Encounter Summary ---
Demographics + + + | Address | [address] | | | [place] [address] | + + + | Home Phone | | + + + | Preferred Language | Unknown | + + + | Marital Status | | + + + | Anglican Affiliation | Unknown | + + + | Race | Unknown | + + + | Ethnic Group | Unknown | + + + Author + + + | Author | [facility] | | | and [place] | + + + | Organization | [facility] | | | and [place] [...] Team Providers + +------+ + | Care Patching Machine Operator Name | Role | Phone | + +------+ + PCP | Unavailable | + +------+ + Encounter Details +--------+ + + + + | Date | Type | Department | Care Team | Description | +--------+ + + + + | 03/14/ | Hospital | [facility] | Dov Koehler | | | 2001 | Encounter | MED [facility] SLEEP | [facility] [place] [address] | | | | | CENTER [address] | [facility] | | | | | [place], [place] | [place] [address] | | | | | [id number] | [phone] | | | | | [phone] | | | +--------+ + + + [...]
[~2020-06-27 09:00] MED LIST: ACETAMINOPHEN500 M1 PO; CALCIUM 600 MG1 EAC1 PO; CELEXA20 MG PO; CYCLOBENZAPRINE10 MG PO; DILAUDID4 MG PO; GLUCOPHAGE XR750 MG PO; LANTUS100 UNITS/ SUB-Q; LOVASTATIN40 MG PO; POTASSIUM99 M1 PO; PRILOSEC20 MG PO; TENORMIN100 MG PO; VISTARIL25 MG PO
[2020-06-27] MEDS ORDERED: LEVOTHYROXINE75 MCG PO (09:14)
[2020-06-27] MEDS ORDERED: VICTOZA 2-0.6 MG/0.1 SUB-Q (09:14)
[2020-06-27] MEDS ORDERED: DILAUDID2 MG PO (09:50)
== END 2020-06-27 10:10 | disposition home or self-care (01) ==
LOC: ED 09:00
DX: S92.352A Displaced fracture of fifth metatarsal bone, left foot, initial encounter for closed fracture (principal); E11.9 Type 2 diabetes mellitus without complications; I10 Essential (primary) hypertension; Z88.8 Allergy status to other drugs, medicaments and biological substances; Z88.0 Allergy status to penicillin; Z88.2 Allergy status to sulfonamides; Z88.5 Allergy status to narcotic agent; Z88.6 Allergy status to analgesic agent; Z79.899 Other long term (current) drug therapy; Z79.4 Long term (current) use of insulin; W11.XXXA Fall on and from ladder, initial encounter
CPT/HCPCS: 73610; 73630; 96374; 99283-25; J1170

== ENCOUNTER 2020-07-13 06:00 | Day surgery (SDC) | payer MEDICARE ==
[~2020-07-13] VITALS: Ht 157.5 cm; Wt 95.2 kg
[~2020-07-13 06:00] MED LIST changes: +DILAUDID2 MG PO; +LEVOTHYROXINE75 MCG PO; +NEURONTIN300 MG PO; +VICTOZA 2-0.6 MG/0.1 SUB-Q
[2020-07-13] MEDS ORDERED: DILAUDID2 MG PO (08:42)
--- NOTE | 2020-07-13 08:49 | NUR ---
07/13/20 0849 Brittni Denney 0840- PT ARRIVES TO PACU NONAROUSABLE TO NOXIOUS STIMULI WITH AN OPA IN PLACE. RESP EVEN AND UNLABORED. OXYGEN SAT LOW TO MID 90'S ON 6L VIA MASK. PT'S HEAD REPOSITIONED TO MAINTAIN A CLEAR AIRWAY. OXYGEN SAT INREASED TO HIGH 90'S WITH THIS CHANGE. 0845- BLOOD SUGAR TAKEN 170.
--- NOTE | 2020-07-13 09:38 | NUR ---
PATIENT RUBBING EYES, HAS BEEN TOLD TO STOP ITCHING EYES MULTIPLE TIMES BY KATHERIN AND MOSHE BAZAN. PATIENT NON-COMPLIANT. INSPECTOR ADVANCED COMPOSITE INTO ROOM TO ASSESS PATIENT PAIN, REPORTED NUMBNESS AROUND INCISION, PATIET NEW ORDER FOR TYLENOL PER PATIENT REQUEST. NO OTHER NEEDS AT THIS TIME, CALL LIGHT WITHIN REACH.
--- NOTE | 2020-07-13 10:36 | NUR ---
PATIENT RESTING BACK, CONTINUES TO REPEAT SELF. PATIENT COMPLAINS OF EYE HURTING, ATTEMPTED TO WASH OUT WITH SALINE FLUSH AND APPLIED COLD COMPRESS ENCOURAGING PATIENT QUIT ITCHING AT EYE. DRESSING TO LEFT FOOT C/D/I, ICE APPLIED AND FOOT ELEVATED ON PILLOW. STRONG PEDAL PULSE AND WARM TOES. CALL LIGHT WITHIN REACH. PROVIDED ICE WATER. PATIENT REPORTS FEELING WARM ENOUGH.
--- NOTE | 2020-07-13 11:50 | NUR ---
PATIENT UP TO [facility], ABLE TO TOE TOUCH WELL WITH WALKER. VOIDED 400 ML OF URINE. DC IV CATH. PATIENT CONTINUES TO COMPLAIN OF PAIN ON BOTTOM OF FOOT, STATES ITS 3/10 ON PAIN SCALE AND TOLERABLE. PATIENT REPORTS ITCHING AND BURNING TO RIGHT EYE IMPROVED STATES " I THINK I MUST OF SCRATCHED MY EYEBALL". PROVIDED DISCHARGE INSTRUCTION, ANSWERED QUESTIONS AND CONCERNS. PROVIDED WHEEL CHAIR RIDE TO FRONT WHERE PATIENT TRANSFERED WELL INTO PRIVATE VEHICLE, FRIEND DROVE PATIENT HOME. DRESSING TO FOOT C/D/I. STRONG PEDAL PULSES AND SKIN WARM AND DRY.
--- NOTE | 2020-07-16 08:53 | OR ---
[facility] [address], [place] [address] Signed DATE OF OPERATION: 07/13/2020 SURGEON: Stoney Alvarez MD PREOPERATIVE DIAGNOSIS: Comminuted left 5th metatarsal fracture. POSTOPERATIVE DIAGNOSIS: Comminuted left 5th metatarsal fracture. PROCEDURE PERFORMED: Open reduction and internal fixation of left 5th metatarsal. BRANCH ASSOCIATE TELLER: LIZZY Jara. IMPLANTS: A 6-hole 2.7 mini frag plate with eight screws. BRIEF HISTORY: Carmen is a 65-year-old female, who suffered a fall off a ladder, creating a comminuted displaced fracture of her proximal 5th metatarsal, essentially the proximal two-thirds. She had extensive swelling and a little bit of blistering. Initially, we put her in a fracture boot and waited for the swelling to go down. The swelling took about three weeks to go down where she had a good wrinkle test. At this point, risks and benefits of operative treatments were discussed with her and she elected to proceed. DESCRIPTION OF PROCEDURE: Once consent was obtained, she was taken to the operating room. After adequate anesthesia, she was placed on operating room table. Downside pressure points well padded. A well-padded proximal thigh tourniquet placed as well as a hip bump. The leg was then prepped and draped in a standard sterile fashion. Leg was exsanguinated using Esmarch bandage. Tourniquet inflated to 250 mmHg. The metacarpals approached through the standard lateral approach carried through skin and subcutaneous tissue. The scar tissue and debrided off the fractures. There was a longitudinal split in the midportion of the fracture that was clamped together and the screw was placed across it. The remainder of the fracture was then reduced. The tip of the metatarsal was comminuted and quite softened. We fashioned a hook plate out of the 2.7 mini frag plate and hooked the hook over the proximal into the metatarsal, reducing and holding it. Once this was accomplished, the screw was placed in the middle portion of the plate. Electronically Signed By: STONEY ALVAREZ MD 07/16/20 0853 PATIENT NAME: CARMEN CARDOZA OPERATIVE REPORT DATE OF : 51 REPORT #: [id number] PHYSICIAN: STONEY ALVAREZ MD PCP: JUANPABLO ANDREW PA-C REPORT IS CONFIDENTIAL AND NOT TO BE RELEASED WITHOUT AUTHORIZATION [facility] [address], [place] [address] Signed The remaining screws in the plate were then drilled and appropriate length screws were placed. The split was then reduced and clamped and a single 2.7 screw was placed from anterior to posterior. I felt that due to the fragility of the bone, the two screws that were in were going to be sufficient to hold this in place. We attempted to place a 2.0 screw into the proximal fragment, however, it was softened so badly that no purchase was obtainable. We then sutured the proximal end to the plate using two Arthrex LabralTape's and tying them tightly. Good fixation was obtained. At this point final radiographs showed good position of the plate and hardware. Screws were good length. We then irrigated the wound, closed it with 2-0 Monocryl and 2-0 nylon. The wound was then dressed with Xeroform, 4 x 8's, and an Levi wrap. She was placed back into a fracture brace. She tolerated it well. All sponge, needle, and instrument counts were correct. Stoney Alvarez MD BA/MODL /[id number] Copies: ~ Electronically Signed By: STONEY ALVAREZ MD 07/16/20 0853 PATIENT NAME: CARMEN CARDOZA OPERATIVE REPORT DATE OF : 51 REPORT #: [id number] PHYSICIAN: STONEY ALVAREZ MD PCP: JUANPABLO ANDREW PA-C REPORT IS CONFIDENTIAL AND NOT TO BE RELEASED WITHOUT AUTHORIZATION
== END 2020-07-13 11:50 | disposition home or self-care (01) ==
LOC: DS 06:00
PROVIDERS: Specialist
PROC: 0QSP04Z Reposition Left Metatarsal with Internal Fixation Device, Open Approach (ICD-10-PCS; principal; 2020-07-13 10:30)
DX: S92.352A Displaced fracture of fifth metatarsal bone, left foot, initial encounter for closed fracture (principal); I10 Essential (primary) hypertension; E11.9 Type 2 diabetes mellitus without complications; E78.5 Hyperlipidemia, unspecified; M79.7 Fibromyalgia; Z79.899 Other long term (current) drug therapy; Z79.4 Long term (current) use of insulin; Z88.8 Allergy status to other drugs, medicaments and biological substances; Z88.6 Allergy status to analgesic agent; W11.XXXA Fall on and from ladder, initial encounter
CPT/HCPCS: 01830; 64445; 64447; 73620; 76942; C1713; J0690; J1100; J1885; J2001; J2250; J2405; J2704; J2795; J7121

== ENCOUNTER 2021-12-20 06:30 | Day surgery (SDC) | payer MEDICARE ==
[~2021-12-20] VITALS: Ht 157.5 cm; Wt 93.6 kg
[2021-12-20] MEDS ORDERED: DICLOFENAC POTA50 MG PO (08:44)
--- NOTE | 2021-12-21 09:14 | OR ---
[facility] [address] [place], [place] [address] Signed DATE OF OPERATION: 12/20/2021 SURGEON: Stoney Alvarez MD PREOPERATIVE DIAGNOSIS: Left long trigger finger. POSTOPERATIVE DIAGNOSES: 1. Left long trigger finger. 2. Left long ganglion cyst. PROCEDURE PERFORMED: Left long trigger finger release, ganglion cyst excision. ELIGIBILITY SERVICES REPRESENTATIVE: None. ANESTHESIA: [place] block. TOURNIQUET TIME: 20 minutes. BRIEF HISTORY: Carmen is a 66-year-old female with painful nodule in her palm and triggering and occasional locking of her finger. Risks and benefits of operative treatment discussed with her and she elected to proceed. DESCRIPTION OF PROCEDURE: Once consent was obtained, she was taken to the operating room. After adequate anesthesia, she was left on the day surgery bed. The hand table was brought in. The arm was prepped and draped in a standard sterile fashion. The nodule on the flexor tendon of the middle finger was then identified and 1 cm incision was made in the distal palmar crease. This was carried through skin and subcutaneous tissue. Prior to reaching the flexor tendon, we did encounter two cysts about 2 to 3 mm in diameter. These were likely causing her some significant pain with gripping. They were both removed using a small rongeur. The A1 ivana was then identified under loupe magnification and was transected and released completely. The finger was then removed. There was good excursion of the tendon with no triggering or locking. The patient was too sleepy to move the tendon on her own. Wound was copiously irrigated with normal Electronically Signed By: STONEY ALVAREZ MD 12/21/21 0914 PATIENT NAME: CARMEN CARDOZA OPERATIVE REPORT DATE OF : 51 REPORT #: [id number] PHYSICIAN: STONEY ALVAREZ MD PCP: JUANPABLO ANDREW PA-C REPORT IS CONFIDENTIAL AND NOT TO BE RELEASED WITHOUT AUTHORIZATION [facility] [address] [place], [place] [address] Signed saline, closed with 3-0 nylon and dressed with bacitracin, Adaptic, 4 x 8s, and gauze. We did do a lisa-incisional regional block with 0.25% plain Marcaine. The patient was then awakened, taken to the recovery room in satisfactory condition. All sponge, needle, and instrument counts were correct. Stoney Alvarez MD BA/ERAL /[id number] Copies: ~ Electronically Signed By: STONEY ALVAREZ MD 12/21/21 0914 PATIENT NAME: CARMEN CARDOZA CURT OPERATIVE REPORT DATE OF : 51 REPORT #: [id number] PHYSICIAN: STONEY ALVAREZ MD PCP: JUANPABLO ANDREW PA-C REPORT IS CONFIDENTIAL AND NOT TO BE RELEASED WITHOUT AUTHORIZATION
== END 2021-12-20 09:25 | disposition home or self-care (01) ==
LOC: OPS 06:30 → DS 06:30 → OPS 07:45 → DS 09:30 → OPS 09:30
PROVIDERS: ATTEND Specialist
PROC: 0LB80ZZ Excision of Left Hand Tendon, Open Approach (ICD-10-PCS; 2021-12-20)
PROC: 0LN80ZZ Release Left Hand Tendon, Open Approach (ICD-10-PCS; principal; 2021-12-20 07:45)
DX: M65.332 Trigger finger, left middle finger (principal); M67.442 Ganglion, left hand; G89.18 Other acute postprocedural pain
CPT/HCPCS: J0690; J1100; J1885; J2250; J2405; J2765; J3010; J7121

== ENCOUNTER 2024-08-19 08:05 | Day surgery (SDC) | payer MEDICARE ==
[~2024-08-19] VITALS: Ht 157.5 cm; Wt 90.9 kg
[~2024-08-19 08:05] MED LIST changes: +ACETAMINOPHEN500 MG PO; +ADVIL200 MG PO; +AROMASIN25 MG PO; +CEFAZOLIN SODIUM 2 GM/20 ML SYR IV SCH; +DICLOFENAC POTA50 MG PO; +HYDROMORPHONE HC2 MG PO; +IBLOOD GLUCOSE TEST STRIP 1 EA TEST VI PRN; +IBUPROFEN600 MG PO; +JANUVIA100 MG PO; +LACTATED RINGER'S 1,000 ML IV SCH; +LIDOCAINE HCL 1% 5 ML SDV INJ ONE; +METFORMIN HCL1000 MG PO; +MIRALAX17 GM PO; +MULTIVITAMIN1 EACH PO
[2024-08-19 08:23] VITALS: BP 158/67
[2024-08-19] MEDS ORDERED: MIDAZOLAM HCL 2 MG/2 ML VIAL ONE (09:19)
[2024-08-19] MEDS ORDERED: KETOROLAC TROMETHAMINE 30 MG/ML VIAL ONE (09:24)
[2024-08-19] MEDS ORDERED: LIDOCAINE HCL 0.5% 50 ML SDV ONE (09:24)
[2024-08-19] MEDS ORDERED: dexmedeTOMIDine HCl 200 MCG/2 ML VIAL ONE (09:24)
[2024-08-19] MEDS ORDERED: DEXAMETHASONE SOD PHOS 4 MG/ML VIAL ONE (09:24)
[2024-08-19] MEDS ORDERED: TRIAMCINOLONE ACET 40 MG/ML VIAL 1 ML ONE (09:38)
[2024-08-19] MEDS ORDERED: TRAMADOL HCL 50 MG TAB PO PRN (10:00)
[2024-08-19] MEDS ORDERED: NALOXONE HCL 0.4 MG SYR IV PRN (10:15)
[2024-08-19] MEDS ORDERED: ondansetron HCL 4 MG/2 ML VIAL IV PRN (10:15)
[2024-08-19] MEDS ORDERED: IBLOOD GLUCOSE TEST STRIP 1 EA TEST VI PRN (10:15)
[2024-08-19 11:01] VITALS: BP 142/76
--- NOTE | 2024-08-19 11:44 | NUR ---
08/19/24 1144 Cece Mcdowell 1035 PT ARRIVED TO PACU ON RA, PT AWAKE AND TALKING TO RN. VSS AND PT DENIES PAIN AND NAUSEA. RIGHT HAND ELEVATED ON PILLOWS. PT REPORTS NUMB HAND AND EDUCATION GIVEN ON BLOCK. 1045 PT SIPPING SODA PER REQUEST AND HOB INCREASED. 1116 PT DRESSED HERSELF AND DC INSTRUCTIONS AND PAPERWORK GIVEN. SMALL MAOUNT OF DRIED BLOOD NOTED ON RIGHT WRIST, AREA CLEANED AND INJECTION DONE IN SUGERY PER PT REQUEST. NO ACUTE BLEEDING NOTED. ALL QUESTIONS ANSWERED. PT DC VIA WC TO HER FRIEND.
--- NOTE | 2024-08-19 11:56 | OR ---
[facility] [address] [place], [place] [address] Signed DATE OF OPERATION: 08/19/2024 SURGEON: Stoney Alvarez MD PREOPERATIVE DIAGNOSES: 1. Right small trigger finger/cyst. 2. CMC DJD, left thumb. PROCEDURES PERFORMED: 1. Right trigger finger release with cyst excision. 2. Injection of left thumb CMC. ROAD MANAGER: None. ANESTHESIA: [place] block. TOURNIQUET TIME: 18 minutes. BRIEF HISTORY: Carmen is a 69-year-old female with the above problems. Risks and benefits of operative treatment were discussed with her and she elected to proceed. DESCRIPTION OF PROCEDURE: Once consent was obtained, she was taken to the operating room. She was left on the operating room bed. The [place] block was established on the right and while she was under sedation for this, I injected the left thumb CMC joint with 1 mL Kenalog 0.25% Marcaine. The right hand was then prepped and draped in a standard sterile fashion. The small finger A1 ivana was then approached through a 1.5 cm incision. There was a small cyst overlying this region in the flexor tendon sheath. This was excised. The A1 ivana and flexor tendon sheath were then opened up longitudinally under loupe magnification with tenotomy scissors. We then inspected the tendon which appeared to be good. There was a small nodule, but not very big. The patient was then asked to flex and extend her hand. She was able to fully flex and fully extend with some stiffness due to her DJD. The wound was copiously irrigated with normal saline, closed with 3-0 nylon and injected with 5 mL of 0.25% plain Marcaine. Wound was dressed with bacitracin, Adaptic, 4 x 8s, and gauze. She tolerated the procedure well. All sponge, needle, and instrument counts Electronically Signed By: STONEY ALVAREZ MD 08/19/24 5605 PATIENT NAME: CARMEN CARDOZA OPERATIVE REPORT DATE OF : 51 REPORT #: [id number] PHYSICIAN: STONEY ALVAREZ MD PCP: JUANPABLO ANDREW PA-C REPORT IS CONFIDENTIAL AND NOT TO BE RELEASED WITHOUT AUTHORIZATION [facility] [address] [place], [place] [address] Signed were correct. Stoney Alvarez MD BA/MODL /[id number] Copies: ~ Electronically Signed By: STONEY ALVAREZ MD 08/19/24 1156 PATIENT NAME: CARMEN CARDOZA OPERATIVE REPORT DATE OF : 51 REPORT #: [id number] PHYSICIAN: STONEY ALVAREZ MD PCP: JUANPABLO ANDREW PA-C REPORT IS CONFIDENTIAL AND NOT TO BE RELEASED WITHOUT AUTHORIZATION
== END 2024-08-19 11:16 | disposition home or self-care (01) ==
LOC: DS 08:05
PROVIDERS: ATTEND Specialist
PROC: 0LN70ZZ Release Right Hand Tendon, Open Approach (ICD-10-PCS; principal; 2024-08-19 11:25)
PROC: 3E0233Z Introduction of Anti-inflammatory into Muscle, Percutaneous Approach (ICD-10-PCS; 2024-08-19 11:25)
DX: M65.351 Trigger finger, right little finger (principal); M25.841 Other specified joint disorders, right hand; M18.12 Unilateral primary osteoarthritis of first carpometacarpal joint, left hand; E78.00 Pure hypercholesterolemia, unspecified; I10 Essential (primary) hypertension; E11.9 Type 2 diabetes mellitus without complications; E03.9 Hypothyroidism, unspecified; Z79.84 Long term (current) use of oral hypoglycemic drugs; Z79.899 Other long term (current) drug therapy; Z88.8 Allergy status to other drugs, medicaments and biological substances
CPT/HCPCS: 01810; J0690; J1100; J1885; J2250; J3301; J7121